=== PATIENT | male | born 1930 | race Caucasian/White ===

== ENCOUNTER 2017-02-28 09:30 | Emergency (ER) | payer OTHER ==
[~2017-02-28] VITALS: Ht 167.6 cm; Wt 70.0 kg
[~2017-02-28 09:30] MED LIST: AMLO5TAB96 PO; ASPI325T PO; CEPH500C3 PO; TAB-TAB; TOPR50TA PO
[2017-02-28 09:37] VITALS: BP 177/85; PULSE 71; RESP 19; TEMP 97.9; O2SAT 100
--- NOTE | 2017-02-28 11:29 | RADRPT ---
EXAM DATE/TIME: 02/28/2017 11:11 [facility] COMPARISON: CT BRAIN W/O CONTRAST, September 06, 2016, 19:26. INDICATIONS : Trauma; fall. RADIATION DOSE: 32.73 CTDIvol (mGy) MEDICAL HISTORY : Cardiovascular disease. Hypertension. SURGICAL HISTORY : Pacemaker. ENCOUNTER: Initial ACUITY: 1 day PAIN SCALE: 4/10 LOCATION: cranial TECHNIQUE: Multiple contiguous axial images were obtained of the head. Using automated exposure control and adj ustment of the mA and/or kV according to patient size, radiation dose was kept as low as reasonably a chievable to obtain optimal diagnostic quality images. FINDINGS: There is atrophy. No signs of acute infarct, intracranial hemorrhage, or mass. No fractures. CONCLUSION: No acute disease. Maurizio Whittington MD on February 28, 2017 at 11:27 Board Certified Radiologist. This report was verified electronically.
--- NOTE | 2017-02-28 11:39 | RADRPT ---
EXAM DATE/TIME: 02/28/2017 11:11 [facility] COMPARISON: No previous studies available for comparison. INDICATIONS : Trauma; fall. RADIATION DOSE: 20.29 CTDIvol (mGy) MEDICAL HISTORY : Cardiovascular disease. Hypertension. SURGICAL HISTORY : Pacemaker. ENCOUNTER: Initial ACUITY: 1 day PAIN SCALE: 5/10 LOCATION: Bilateral neck TECHNIQUE: Volumetric scanning of the cervical spine was performed. Multiplanar reconstructions in the sagittal, coronal and oblique axial planes were performed. Using automated exposure control and adjustment o f the mA and/or kV according to patient size, radiation dose was kept as low as reasonably achievable to obtain optimal diagnostic quality images. FINDINGS: Anterolisthesis of C4 on C5, C5 on C6 and C6 on C7. Severe disc space narrowing at C56 with endplate sclerosis and vacuum disc phenomenon. Moderate disc space narrowing at C4-5. Moderate to severe multi level facet hypertrophic changes are identified with prominent osteophyte formation. Remote C7 spinou s process fracture fragment. Multilevel uncovertebral hypertrophy at C4-5 and C5-6. No fractures are seen. There is a hypodense nodule left thyroid lobe measuring 8.5 mm. CONCLUSION: [id number] degenerative changes without evidence for acute fracture. Maurizio Whittington MD on February 28, 2017 at 11:35 Board Certified Radiologist. This report was verified electronically.
--- NOTE | 2017-02-28 11:45 | PD ---
HPI Chief Complaint: Fall Time Seen by Provider: 10:53 Travel History International Travel<30 days: No Contact w/Intl Traveler<30days: No Traveled to known affect area: No History of Present Illness HPI Patient is an 86-year-old male with history of dense dementia lives at home with his son presents the emergency department after fall. Patient was apparently found a gas station fairly confused and was brought in by EMS. Son arrived shortly after and states that he has been looking for his father as he happened to get out last night. The son is very appropriate and states that he keeps all the doors alarmed and his house so that he can keep track of his father. He thinks that his father went into his brother's bedroom and happen to get out of the house that way because that his brother's bedroom door was not locked. It is difficult to get history from the patient but he is appropriate with his son and has no physical complaints at this time. PFSH Past Medical History Hx Anticoagulant Therapy: No Autoimmune Disease: No Depression: Yes Heart Rhythm Problems: Yes Cardiac Catheterization: Yes Cardiovascular Problems: Yes High Cholesterol: Yes Chemotherapy: No Cerebrovascular Accident: No Coronary Artery Disease: Yes Diabetes: No Diminished Hearing: No Endocrine: No Gastrointestinal Disorders: No Genitourinary: No Hypertension: Yes Kidney Stones: Yes Neurologic: No Respiratory: No Immunizations Current: No Myocardial Infarction: Yes Past Surgical History Cardiac Surgery: Yes Cholecystectomy: Yes (2005) Coronary Artery Bypass Graft: Yes (UNKNOWN NUMBER OF [id number]) Valve Replacement: Yes () Other Surgery: Yes (PACEMAKER) Social History Alcohol Use: No (BEER OCC) Tobacco Use: No (QUIT ) Substance Use: No (PT DENIES) Allergies-Medications (Allergen,Severity, Reaction): Coded Allergies: No Known Allergies (Verified , 02/28/17) Reported Meds & Prescriptions Reported Meds & Active Scripts Active Review of Systems ROS Limitations: Other: (dementia) Physical Exam Narrative GENERAL: Well-developed well-nourished no apparent distress SKIN: Other than below and head section no visible signs of trauma.. HEAD: No raccoons eyes no gaitan signs, there is a small abrasion on the right side of the patient's head.. Normocephalic. EYES: Pupils equal and round. No scleral icterus. No injection or drainage. ENT: No nasal bleeding or discharge. Mucous membranes pink and moist. NECK: Trachea midline. No JVD. CARDIOVASCULAR: Regular rate and rhythm. No murmur appreciated. RESPIRATORY: No accessory muscle use. Clear to auscultation. Breath sounds equal bilaterally. GASTROINTESTINAL: Abdomen soft, non-tender, nondistended. Hepatic and splenic margins not palpable. MUSCULOSKELETAL: No obvious deformities. No clubbing. No cyanosis. No edema. Extremities are atraumatic, no midline CT or L-spine tenderness. NEUROLOGICAL: Awake and alert. No obvious cranial nerve deficits. Follows commands in all 4 extremities. Normal speech. PSYCHIATRIC: Pleasantly confused. Oriented to self only. Data Data Last Documented VS Vital Signs Date Time Temp Pulse Resp B/P Pulse Ox O2 Delivery O2 Flow Rate FiO2 02/28/17 09:37 97.9 71 19 177/[address] Brain W/O Iv Contrast(Rout) (02/28/17 ) Ct Cerv Spine W/O Contrast (02/28/17 ) MDM Medical Decision Making Medical Screen Exam Complete: Yes Emergency Medical Condition: Yes Differential Diagnosis Closed head injury, neck injury unlikely, dementia, Narrative Course Patient roomed in emergency department, he appears well but fairly significant he demented. He is in a cervical collar. Last [address] 02/28/17 0000 Signed Impressions: Service Date/Time: Tuesday, February 28, 2017 11:11 - CONCLUSION: No acute disease. Maurizio Whittington MD Cervical Spine CT 02/28/17 0000 Signed Impressions: Service Date/Time: Tuesday, February 28, 2017 11:11 - CONCLUSION: [id number] degenerative changes without evidence for acute fracture. Maurizio Whittington MD Patient cervical collar was removed he was a with some assistance. His umbilicus take him home. He is currently looking for other placement options as the patient has been removed from other facilities in the past for his tendency to wander. He is stable for discharge at this time. Diagnosis Primary Impression: Closed head injury Qualified Code: S09.90XA - Closed head injury, initial encounter Disposition: DISCHARGE HOME Condition: Stable Denton Taveras MD Feb 28, 2017 11:45
== END 2017-02-28 12:04 | disposition home or self-care (01) ==
LOC: NEPE 09:30
DX: S00.01XA Abrasion of scalp, initial encounter (principal); W19.XXXA Unspecified fall, initial encounter; I10 Essential (primary) hypertension; Y93.9 Activity, unspecified; Y92.9 Unspecified place or not applicable; Y99.9 Unspecified external cause status; E78.00 Pure hypercholesterolemia, unspecified; Z87.442 Personal history of urinary calculi; I25.2 Old myocardial infarction; Z95.1 Presence of aortocoronary bypass graft; Z95.2 Presence of prosthetic heart valve
CPT/HCPCS: 70450; 72125